=== PATIENT | female | born 1965 | race Caucasian/White ===

== ENCOUNTER 2024-09-10 17:40 | Emergency (ER) | payer OTHER ==
[~2024-09-10] VITALS: Ht 162.6 cm; Wt 69.5 kg
[2024-09-10 17:52] VITALS: TEMP 98
[2024-09-10] MEDS ORDERED: METF-1211 PO (17:57)
[2024-09-10] MEDS ORDERED: HYDR25TA2 PO (17:57)
[2024-09-10] MEDS ORDERED: LISI-663 PO (17:57)
[2024-09-10] MEDS ORDERED: INSULIN SQ (17:57)
[2024-09-10] MEDS ORDERED: NIFE-40 PO (17:57)
[2024-09-10 18:11] LABS: GLUCOMETER DEV NAME(LOC) ER.7; GLUCOSE,POINT OF CARE 270 MG/DL (70-110)
[2024-09-10 18:15] LABS: BASOPHILS % (AUTO) 0.7 % (0.0-2.0); EOSINOPHILS % (AUTO) 2.6 % (1.0-6.0); HEMATOCRIT 43.4 % (36-46); HEMOGLOBIN 14.8 g/dL (12.0-16.0); LYMPHOCYTES % (AUTO) 37.7 % (22.0-44.0); MEAN CORPUSCULAR HEMOGLOBIN 30.9 pg (26.0-34.0); MEAN CORPUSCULAR HGB CONC 34.1 G/dL (31.0-37.0); MEAN CORPUSCULAR VOLUME 91 fL (80-100); MONOCYTES # (AUTO) 0.6 K/uL (0.1-1.0); MONOCYTES % (AUTO) 6.9 % (2.0-9.0); NEUTROPHILS # (AUTO) 4.2 K/uL (1.8-7.7); NEUTROPHILS % (AUTO) 52.1 % (40.0-70.0); PLATELET COUNT (AUTO) 239 K/uL (150-450); RED BLOOD CELL COUNT(AUTO) 4.78 MIL/uL (4.00-5.20); WHITE BLOOD COUNT (AUTO) 8.1 K/uL (4.5-11.0)
[2024-09-10 18:34] LABS: CREATININE 0.99 mg/dL (0.60-1.30); POTASSIUM 3.8 mmol/L (3.5-5.1)
[2024-09-10 18:42] LABS: TROPONIN I-HIGH SENSITIVITY 10 ng/L (<51)
[2024-09-10] MEDS: NITROGLYCERIN 0.4 MG SUBLINGUAL TABLET #25 SL ONE (18:42)
[2024-09-10] MEDS: ASPIRIN 325 MG TABLET PO ONE (18:42)
[2024-09-10] MEDS: ONDANSETRON HCL 4 MG/2 ML VIAL IVP ONE (18:45)
[2024-09-10 19:12] LABS: CALCIUM, TOTAL 9.3 mg/dL (8.8-10.5)
[2024-09-10 19:16] VITALS: BP 146/73; PULSE 79; RESP 17; O2SAT 97
[2024-09-10] MEDS: NITROGLYCERIN 2% (1 GM=INCH) OINTMENT PACKET TP ONE (19:26)
== END 2024-09-10 19:41 | disposition left against medical advice (07) ==
LOC: EMS 17:40
DX: E11.65 Type 2 diabetes mellitus with hyperglycemia (principal); R07.89 Other chest pain; Z79.4 Long term (current) use of insulin; Z90.49 Acquired absence of other specified parts of digestive tract
CPT/HCPCS: 71045; 80048; 82962; 84484; 85025; 93005; 99285; 36415-L1; 36415-TC